=== PATIENT | female | born 1975 | race Two or more races ===

== ENCOUNTER 2022-11-11 14:43 | Outpatient (CLI) | payer BC, SELFPAY ==
[2022-11-11 21:51] LABS: Iron* 18 ug/dL (37-170)
[2022-11-11 22:00] LABS: Percent Iron Saturation 4 % (20-50); Total Iron Binding Capacity 504 ug/dL (265-497)
[2022-11-11 22:43] LABS: Ferritin* 3.9 ng/mL (6.24-137.0)
[2022-11-11 22:56] LABS: Vitamin B12* 628 pg/mL (243-894)
[2022-11-14 14:22] LABS: Folate, Serum 16.6 ng/mL (>=5.9)
== END 2022-11-11 14:44 | disposition home or self-care (01) ==
PROVIDERS: Visit Provider Family Medicine
DX: D64.9 Anemia, unspecified (principal); R63.4 Abnormal weight loss
CPT/HCPCS: 82607; 82728; 82746; 83540; 83550

== ENCOUNTER 2022-11-26 09:47 | Outpatient (CLI) | payer BC, SELFPAY ==
--- NOTE | 2022-11-26 11:00 | CRLHL7_ITS ---
For Patients: As a result of the Century Cures Act, medical imaging exams and procedure reports are released immediately into your electronic medical record. You may view this report before your referring provider. If you have questions, please contact your health care provider. Indication: ANEMIA, UNINTENDED WEIGHT LOSS Technique: Postcontrast CT chest, abdomen and pelvis. 75 cc Isovue 370 intravenous contrast. Please note that all CT scans at this facility use dose modulation, iterative reconstruction, and/or weight-based dosing when appropriate to reduce radiation dose to as low as reasonably achievable. Comparison: CT abdomen and pelvis 05/14/2013 Findings: In the chest, no enlarged mediastinal, hilar or axillary lymph nodes are present. Incidental 6 millimeter lymph node located within the left thoracic inlet. No suspicious thyroid nodule. Normal breast tissue. Degenerative joint disease at the acromioclavicular joints with joint space narrowing and spurring. No fracture is present. No suspicious osseous lesion. No infiltrate, edema, effusion or pneumothorax. No pulmonary nodule. In the abdomen, there is no suspicious intrahepatic mass. The gallbladder is absent. No biliary obstruction. The spleen is normal. No hiatal hernia. Pancreas within normal limits. Normal adrenal glands. The kidneys are normal. In the pelvis. The bladder is normal. The uterus is normal. Unremarkable ovaries. The appendix is within normal limits. No bowel obstruction or free air. No free fluid or abscess. No diverticulitis. No abdominal wall hernia. Incidental bone islands within the proximal right femur. Impression: Unremarkable CT of the chest, abdomen and pelvis. No evidence of malignancy or inflammation. No enlarged lymph nodes. Please note that all CT scans at this facility use dose modulation, iterative reconstruction, and/or weight-based dosing when appropriate to reduce radiation dose to as low as reasonably achievable. Dictated by Erlin Short MD @ 11/26/2022 1:03:38 PM (Electronically Signed)
== END 2022-11-26 09:48 | disposition home or self-care (01) ==
LOC: CT 09:47
PROVIDERS: PCP Family Medicine; Visit Provider Family Medicine
DX: D64.9 Anemia, unspecified (principal); R63.4 Abnormal weight loss
CPT/HCPCS: 71260; 74177; 80053; 82150; 84443; 86140; Q9967

== ENCOUNTER 2023-01-07 08:00 | Outpatient (CLI) | payer BC, SELFPAY | END 2023-01-07 08:01 | disposition home or self-care (01) | LOC: NFLDREF 12:08 | PROVIDERS: PCP Family Medicine; Referring Provider Family Medicine; Visit Provider Family Medicine | DX: D64.9 Anemia, unspecified (principal) | CPT/HCPCS: 82728 ==

== ENCOUNTER 2023-03-17 08:45 | Outpatient (RCR) | payer BC, SELFPAY | END 2023-07-15 23:59 | disposition home or self-care (01) | PROVIDERS: PCP Family Medicine; Visit Provider Family Medicine | DX: M77.01 Medial epicondylitis, right elbow (principal); M77.02 Medial epicondylitis, left elbow; M79.641 Pain in right hand; M79.642 Pain in left hand; M25.522 Pain in left elbow; M25.521 Pain in right elbow; Z51.89 Encounter for other specified aftercare | CPT/HCPCS: 97033; 97035; 97110; 97140; 97166; T1013; X5282 ==

== ENCOUNTER 2023-05-30 08:05 | Outpatient (CLI) | payer BC, SELFPAY | END 2023-05-30 08:06 | disposition home or self-care (01) | LOC: NFLDREF 06-02 18:38 | PROVIDERS: PCP Family Medicine; Referring Provider Family Medicine; Visit Provider Family Medicine | DX: D64.9 Anemia, unspecified (principal) | CPT/HCPCS: 82728 ==

== ENCOUNTER 2023-10-18 08:02 | Outpatient (CLI) | payer OTHER, SELFPAY ==
--- OUTSIDE RECORDS SUMMARY | 2023-10-18 08:10 | XMS_ITS | Clinical Summary ---
Author Name Unknown Organization [facility] Address [address] [place] [address] Care Team Providers Care Ornamental Ironworker Name Role Phone Needs Pcp, Assignment Primary Care Provider [phone] Source Comments You are receiving this document as you are listed as the primary care provider,follow-up provider, or the patient has been referred to you for consultation.This is in compliance with the Medicare and[facility] EHR Incentive Program,which states Providers who transition their patient to another setting of careor provider of care or refers their patient to another provider of care shouldprovide summary care record for each transition of care or referral. [facility] Allergies No known active allergies Medications Medication Sig Dispensed Refills Start Date End Date Status levocetirizine (XYZAL) 5 MG tablet Take 1 Tab by mouth two times a day. 60 Tab 11 06/07/2017 Active Additional Information Patient not taking.Reported on 12/06/2018 diclofenac (VOLTAREN) 1 % gelIndications:Fing er pain, left Apply 2 g to skin three times a day as needed. Apply to fingers. 100 g 0 08/27/2020 Active fluticasone propionate (FLONASE) 50 MCG/ACT nasal solutionIndications :Chronic rhinitis Place 2 Sprays into both nostrils daily. 16 g 11 08/27/2020 Active montelukast (SINGULAIR) 10 MG tabletIndications:U rticaria, chronic Take 1 Tablet by mouth every evening. 30 Tablet 11 08/27/2020 Active levocetirizine (XYZAL) 5 MG tabletIndications:U rticaria, chronic Take 1 Tablet by mouth every evening. 30 Tablet 11 08/27/2020 Active hydrOXYzine HCl (ATARAX) 50 MG tabletIndications:U rticaria, chronic Take 1 Tablet by mouth at bedtime as needed for Itching. 30 Tablet 1 08/27/2020 Active ferrous sulfate 325 (65 Fe) MG tabletIndications:A nemia, unspecified type Take 1 Tablet by mouth every other day. With meal. 90 Tablet 3 09/08/2020 Active Active Problems Problem Noted Date Diagnosed Date Urticaria, chronic 06/07/2017 Encounter for supervision of other normal pregna ncy 12/21/2005 Overview: LW Modifier: 13 WEEKS GESTATION LW Onset: ; Preg Normal Not 1st Preg Social History Tobacco Use Types Packs/Day Years Used Date Smoking Tobacco: Never Smokeless Tobacco: Never Alcohol Use Standard Drinks/Week Comments Never 0 (1 standard drink = 0.6 oz pur e alcohol) AUDIT-C Answer Date Recorded Q1: How often do you have a drink containing alc ohol? Never 08/27/2020 Average Number of Drinks Not on file 020 Frequency of Binge Drinking Not on file 08/10 PHQ-2 Answer Date Recorded PHQ-2 Score 0 08/27/2020 Sex and Gender Information Value Date Recorded Sex Assigned at Not on file Gender Identity Not on file Sexual Orientation Not on file Last Filed Vital Signs Vital Sign Reading Time Taken Comments Blood Pressure 123/77 08/27/2020 4:38 PM RECRUITING ADMINISTRATOR Pulse 81 08/27/2020 4:38 PM RECRUITING ADMINISTRATOR Temperature 36.4 ??C (97.6 ??F) 12/06/2018 1:34 PM CS T Respiratory Rate 16 12/06/2018 1:34 PM RECRUITING ADMINISTRATOR Oxygen Saturation 99% 12/06/2018 1:34 PM RECRUITING ADMINISTRATOR Inhaled Oxygen Concentration - - Weight 74.8 kg (165 lb) 09/17/2020 3:14 PM RECRUITING ADMINISTRATOR Height 152.4 cm (5') 09/17/2020 3:14 PM RECRUITING ADMINISTRATOR Body Mass Index 32.22 09/17/2020 3:14 PM RECRUITING ADMINISTRATOR Plan of Treatment Health Maintenance Due Date Last Done Comments Colon Cancer Screening Plan Due 1974 Hep C Screening (Preventive Services) 1974 HepB (1) 1974 COVID-19 Vaccine (#1) 06/19/1975 Adult Preventive Visit 08/27/2021 08/27/2020 Influenza (#1) 2023 07/02/2020, 07/10, 09/21/2010 Zoster/Shingles (1 of 2) 2024 Cervical Cancer Screening 08/27/20252019, 11/09/2005, 02/11/2004, Additional history exists Cholesterol 09/03/2025 09/03/2020 DTaP/Tdap/Td (4 - Tdap) 02/20/2029 02/21/20 19, 08/22/2018, 07/25/2018 HIV Screening (Preventive Services) Completed 11/09/2005, 06/06/2003 HepA Aged Out No longer eligi ble based on patient's age to complete this topic Hib Aged Out No longer eligi ble based on patient's age to complete this topic IPV (Polio) Aged Out No longer eligi ble based on patient's age to complete this topic MCV4 Aged Out No longer eligi ble based on patient's age to complete this topic Pneumococcal Aged Out No longer eligi ble based on patient's age to complete this topic Care Teams Ornamental Ironworker Relationship Specialty Start Date End Date Needs Pcp, Lia [place], [place] [id number] PCP - General 10/08/16
--- OUTSIDE RECORDS SUMMARY | 2023-10-18 08:10 | XMS_ITS ---
Author Name Unknown Organization [facility] Address [address] [place] [address] Care Team Providers Care Front End Developer Name Role Phone Unavailable Unavailable Unavailable Surgery Details Not on file Complications Check Surgery Details section. Procedure Estimated Blood Loss Check Surgery Details section. Procedure Findings Check Surgery Details section. Procedure Specimens Taken Check Surgery Details section.
--- OUTSIDE RECORDS SUMMARY | 2023-10-18 08:10 | XMS_ITS | Clinical Summary ---
Author Name Unknown Organization [facility] Address [place], [place] [address] Care Team Providers Care Senior Staff Consultant Name Role Phone Unavailable Primary Care Provider Unavailabl e Allergies No known active allergies Medications Medication Sig Dispensed Refills Start Date End Date Status clindamycin 1% (CLEOCIN-T) 1 % lotionIndications:Fol liculitis Apply to affected area of face twice daily as needed 1 Bottle 5 01/15/2015 Active ketotifen (ZADITOR) 0.025 % (0.035 %) ophthalmic solutionIndications:A llergic conjunctivitis, bilateral Place 1 Drop into the eye(s) 2 times daily. 1 Bottle 6 08/21/2015 Active Active Problems No known active problems Social History Tobacco Use Types Packs/Day Years Used Date Smoking Tobacco: Never Smokeless Tobacco: Never Tobacco Cessation:Counseling Given: Yes Alcohol Use Standard Drinks/Week Comments No 0 (1 standard drink = 0.6 oz pur e alcohol) Sex and Gender Information Value Date Recorded Sex Assigned at Not on file Gender Identity Not on file Sexual Orientation Not on file Obstetrics History Last Filed Vital Signs Vital Sign Reading Time Taken Comments Blood Pressure 116/74 08/22/2015 9:18 AM SKIN CARVER Pulse 67 08/22/2015 9:18 AM SKIN CARVER Temperature 36.7 ??C (98.1 ??F) 10/29/2014 8:29 AM CS T Respiratory Rate - - Oxygen Saturation 98% 10/29/2014 8:29 AM SKIN CARVER Inhaled Oxygen Concentration - - Weight 70.3 kg (155 lb) 10/29/2014 8:29 AM SKIN CARVER Height 155 cm (5' 1.02) 10/29/2014 8:29 AM SKIN CARVER Body Mass Index 29.26 10/29/2014 8:29 AM SKIN CARVER Plan of Treatment Health Maintenance Due Date Last Done Comments COVID-19 vaccine series (#1) 06/19/1975 Tdap 1985 Depression screening for age 12+ 1986 HIV for age 15-65 1989 BMI (ht and wt on same day) for age 18+ 1992 Hepatitis C screening for ag e 18-79 1992 Tetanus booster 1994 Pap test for age 21-65 12/18/1995 Colonoscopy through age 75 12/18/2019 Lipids for age 45-75 12/18/2019 Mammogram for age 45-75 12/18/2019 Influenza for age 9-49 06/10/2023 Pneumococcal series for age 6-64 Aged Out No longer eligible based on patient's age to complete this topic
--- OUTSIDE RECORDS SUMMARY | 2023-10-18 08:10 | XMS_ITS | Referral Summary ---
Author Name Unknown Organization [facility] Address [address] [place] [address] Care Team Providers Care Secretary Office Clerk Name Role Phone Unavailable Primary Care Provider Unavailabl e Source Comments Patient records contain information from all sites at [facility]. For routine questions regarding patient records, call [phone] during business hours, M-F 8:00 AM - 5:00 PM Central Time. Record requests for emergency care only can be directed to [phone] at any time.[facility] Allergies Active Allergy Reactions Criticality Noted Date Comments Shellfish Derived Other (see comments) High 02/09/20 22 Swelling and inflamation Medications Medication Sig Dispensed Refills Start Date End Date Status naproxen (NAPROSYN) 500 mg tablet 0 03/09/2022 Active Social History Tobacco Use Types Packs/Day Years Used Date Smoking Tobacco: Never Smokeless Tobacco: Never Tobacco Cessation:Counseling Given: Not Answered Nutrition Answer Date Recorded Nutrition: EVOO Fat Source Unknown 02/03 Nutrition: Servings of Fruits/Vegetables per Day Not on file 02/03/2022 Dental Answer Date Recorded Dental: Regular Dentist Unknown 02/04/20 22 Sex and Gender Information Value Date Recorded Sex Assigned at Not on file Gender Identity Not on file Sexual Orientation Not on file Last Filed Vital Signs Vital Sign Reading Time Taken Comments Blood Pressure 105/68 06/15/2022 1:30 PM CDT Pulse 79 06/15/2022 1:30 PM CDT Temperature - - Respiratory Rate - - Oxygen Saturation - - Inhaled Oxygen Concentration - - Weight 69.8 kg (153 lb 14.1 oz) 06/15/2022 1:30 PM CDT Height 154.9 cm (5' 0.98) 02/08/2022 2:33 PM CD T Body Mass Index 29.09 02/08/2022 2:33 PM CDT Plan of Treatment Not on file
--- OUTSIDE RECORDS SUMMARY | 2023-10-18 08:10 | XMS_ITS | Clinical Summary ---
Author Name Unknown Organization [facility] Address [address] [place] [address] Care Team Providers Care Professional Employer Consultant Name Role Phone Unavailable Primary Care Provider Unavailabl e Source Comments Patient records contain information from all sites at [facility]. For routine questions regarding patient records, call [phone] during business hours, M-F 8:00 AM - 5:00 PM Central Time. Record requests for emergency care only can be directed to [phone] at any time.[facility] Allergies Active Allergy Reactions Criticality Noted Date [...] 02/08/2022 2:33 PM CDT Plan of Treatment Health Maintenance Due Date Last Done Comments CT Colonography 1974 Cervical Cancer Screening 1974 Cologuard 1974 Colonoscopy 1974 Colorectal Cancer Screening 1974 FIT 1974 Fasting Glucose for Diabetes Screening 1974 HIV Screening 1974 Hepatitis B Vaccines (1 of 3 - 3-dose series) 1974 Hepatitis C Screening 1974 Lipid (Cholesterol) Screening 1974 Mammogram 1974 Depression Screening (Annual PHQ-2) 10/10/2022 COVID-19 Vaccine ( season) 2023 03/28/2021, 02/28/2021 Influenza Vaccine (#1) 2023 , 07/25/2018, 09/21/2010 DTaP,Tdap,and Td Vaccines (6 - Td or Tdap) 02/20/2029 02/20/2019, 02/20/2019, 08/22/2018, Additional history exists Pneumococcal vaccine (0-64 years) Aged Out No longer eligible based on patient's age to complete this topic
--- NOTE | 2023-10-18 08:15 | CRLHL7_ITS ---
For Patients: As a result of the Century Cures Act, medical imaging exams and procedure reports are released immediately into your electronic medical record. You may view this report before your referring provider. If you have questions, please contact your health care provider. BILATERAL SCREENING MAMMOGRAM WITH COMPUTER-AIDED DETECTION AND TOMOSYNTHESIS TECHNIQUE: CC and MLO views were obtained. These mammographic images have been obtained using full-field digital technique. These mammographic images were interpreted with the benefit of computer-aided detection. Breast Tomosynthesis was used in this interpretation. COMPARISON FILM: Baseline. FINDINGS: The breasts are heterogeneously dense, which may obscure small masses IMPRESSION: There is no radiographic evidence for malignancy. ASSESSMENT: BI-RADS Category 1: Negative RECOMMENDATION: Routine screening mammogram in 1 year. A lay language report of this examination will be provided to the patient. Abdoul Marte M.D. Diagnostic/Nuclear Medicine Radiologist [email or web address] JOE/Dictated by: Abdoul Marte MD @ 10/18/2023 10:18:00 AM (Electronically Signed)
== END 2023-10-18 08:03 | disposition home or self-care (01) ==
PROVIDERS: PCP Family Medicine; Visit Provider Family Medicine
DX: Z12.31 Encounter for screening mammogram for malignant neoplasm of breast (principal); R92.2 Inconclusive mammogram
CPT/HCPCS: 77063; 77067; T1013

== ENCOUNTER 2023-11-28 15:10 | Outpatient (REF) | payer OTHER, SELFPAY ==
--- OUTSIDE RECORDS SUMMARY | 2023-11-29 11:00 | XMS_ITS | Clinical Summary ---
Author Name Unknown Organization [facility] Address [address] [place] [address] Care Team Providers Care Splunk Dashboard Developer Name Role Phone Unavailable Primary Care Provider Unavailabl e Source Comments Patient records contain information from all sites at [facility]. For routine questions regarding patient records, call [phone] during business hours, M-F 8:00 AM - 5:00 PM Central Time. Record requests for emergency care only can be directed to [phone] at any time.[facility] Allergies Active Allergy Reactions Criticality Noted [...] 1974 Lipid (Cholesterol) Screening 1974 Mammogram 1974 COVID-19 Vaccine (3 season) 2023 03/28/2021, 02/28/2021 Influenza Vaccine (#1) 2023 , 07/25/2018, 09/21/2010 Depression Screening (Annual PHQ-2) 10/10/2023 DTaP,Tdap,and Td Vaccines (6 - Td or Tdap) 02/20/2029 02/20/2019, 02/20/2019, 08/22/2018, Additional history exists Pneumococcal vaccine (0-64 years) Aged Out No longer eligible based on patient's age to complete this topic
--- OUTSIDE RECORDS SUMMARY | 2023-11-29 11:00 | XMS_ITS | Clinical Summary ---
Author Name Unknown Organization [facility] Address [address] [place] [address] Care Team Providers Care Deputy Juvenile Officer Name Role Phone Needs Pcp, Assignment Primary Care Provider [phone] Source Comments You are receiving this document as you are listed as the primary care provider,follow-up provider, or the patient has been referred to you for consultation.This is in compliance with the Medicare and[facility] E[facility] Incentive [facility],which states Providers who transition their patient to another setting of careor provider of care or refers their patient to another provider of care shouldprovide summary care record for each transition of care or referral. [facility] Allergies No known active allergies Medications Medication [...] as needed. Apply to fingers. 100 g 08/27/2020 Active fluticasone propionate (FLONASE) 50 MCG/ACT [...] Comments Blood Pressure 123/77 08/27/2020 4:38 PM TRAFFIC WORKER Pulse 81 08/27/2020 4:38 PM TRAFFIC WORKER Temperature 36.4 ??C (97.6 ??F) 12/06/2018 1:34 PM CS T Respiratory Rate 16 12/06/2018 1:34 PM TRAFFIC WORKER Oxygen Saturation 99% 12/06/2018 1:34 PM TRAFFIC WORKER Inhaled Oxygen Concentration - - Weight 74.8 kg (165 lb) 09/17/2020 3:14 PM TRAFFIC WORKER Height 152.4 cm (5') 09/17/2020 3:14 PM TRAFFIC WORKER Body Mass Index 32.22 09/17/2020 3:14 PM TRAFFIC WORKER Plan of Treatment Health Maintenance Due Date Last Done Comments Colon Cancer Screening Plan Due 1974 Hep C Screening (Preventive Services) 1974 HepB (1) 1993 Adult Preventive Visit 08/27/2021 08/27/2020 COVID-19 Vaccine ( season) 2023 02/28/2021 Influenza (#1) 2023 07/02/2020, 07/10, 09/21/2010 Zoster/Shingles [...] on patient's age to complete this topic Procedures Procedure Name Priority Date/Time Associated Diagnosis Comments LIPID PANEL & DIRECT LDL (IF NEEDED) Routine 09/03/2020 11:07 AM TRAFFIC WORKER Well adult exam PAP TEST Routine 08/27/2020 5:24 PM TRAFFIC WORKER Screening for malignant neoplasm of cervix HIV ANTIBODY Routine 11/09/2005 12:00 PM TRAFFIC WORKER from Last 3 Months or Most Recently Relevant to Health Maintenance Results * (ABNORMAL) Lipid Panel - LDLD If Trig High (09/03/2020 11:07 AM TRAFFIC WORKER) Cholesterol 151 0 - 199 mg/dL 09/03/2020 12:21 PM [facility] Triglyceride 110 <=149 mg/dL 09/03/2020 12:21 PM [facility] HDL Cholesterol 35(L) >=40 mg/dL 0 12:21 PM [facility] LDL, Calculated 94 <130 mg/dL 0 12:21 PM [facility] Non HDL Chol, Calculated 116 mg/dL 09/03/2020 12:21 PM [facility] Cholesterol/HDL Ratio 4.3 09/03/2020 12:21 PM TRAFFIC WORKER [facility] Hours Fasting 12 09/03/2020 12:21 PM TRAFFIC WORKER [facility] Blood Venipuncture / Unknown 09/03/2020 11:07 AM TRAFFIC WORKER 09/03/2020 11:07 AM TRAFFIC WORKER Andrea Moore MD LAB_1 [facility] [address] [place] [address], [facility] [phone] * PAP Test (08/27/2020 5:24 PM TRAFFIC WORKER) Case Report Pap ? Case: [id number] ? Authorizing Provider: ??Andrea Moore MD ?Collected: ? 08/27/2020 1724 ? Ordering Location: ? [facility] Received: ?08/27/2020 1725 ? First Screen: ?Sil Araujo ? Specimen: ?Pap Test, Routine, Cervix/Endocervix ? 09/08/2020 2:39 PM TRAFFIC WORKER [facility] Pap Specimen Adequacy Satisfactory for evaluation, endocervical/watson sformation zone component present. 09/08/2020 2:39 PM TRAFFIC WORKER [facility] Pap Interpretation Negative for intraepithelial lesion or malignancy (NILM). 09/08/2020 2:39 PM TRAFFIC WORKER [facility] Pap Disclaimer The Pap test is a screening test designed to aid in the detection of cervical cancer and its precursor lesions. It is not a diagnostic procedure and should not be used as the sole means of detecting cervical cancer. Both false-positive and false-negative results may occur. 09/08/2020 2:39 PM TRAFFIC WORKER [facility] Gross Description The specimen is received in SurePath fixative and properly labeled. 1 Pap-stained SurePath slide is prepared. 09/08/2020 2:39 PM TRAFFIC WORKER [facility] Embedded Images 0 2:39 PM TRAFFIC WORKER [facility] Other Specimen Type ENTIRE ENDOCERVIX / Unknown 08/27/2020 5:24 PM TRAFFIC WORKER 08/27/2020 5:25 PM TRAFFIC WORKER Comment:LMP: Patient's last menstrual period was 08/22/2020. Andrea Moore MD LAB PATHOLOGY [facility] [address] * HIV Antibody (11/09/2005 12:00 PM TRAFFIC WORKER) HIV 1/HIV 2 Non Reac Non Reac HP CONVERSION 11/09/2005 12:0 0 PM TRAFFIC WORKER Violeta Burch APRN, AUTOMATIC DISPENSER MECHANIC LAB_1 HP CONVERSION from Last 3 Months or Most Recently Relevant to Health Maintenance Care Teams Deputy Juvenile Officer Relationship Specialty Start Date End Date Needs Pcp, [place] [address] PCP - General 10/08/16
--- OUTSIDE RECORDS SUMMARY | 2023-11-29 11:00 | XMS_ITS | Referral Summary ---
Author Name Unknown Organization [facility] Address [address] [place] [address] Care Team Providers Care Videotape Sales Representative Name Role Phone Unavailable Primary Care Provider Unavailabl e Source Comments Patient records contain information from all sites at [facility]. For routine questions regarding patient records, call [phone] during business hours, M-F 8:00 AM - 5:00 PM Central Time. Record requests for emergency care only can be directed to [phone] at any time.[facility] Allergies Active Allergy Reactions Criticality Noted Date [...]
--- OUTSIDE RECORDS SUMMARY | 2023-11-29 11:00 | XMS_ITS | Clinical Summary ---
Author Name Unknown Organization [facility] Address [place], [place] [address] Care Team Providers Care Tree And Shrub Worker Name Role Phone Unavailable Primary Care Provider [...] Comments Blood Pressure 116/74 08/22/2015 9:18 AM POWDER BLENDER AND POURER Pulse 67 08/22/2015 9:18 AM POWDER BLENDER AND POURER Temperature 36.7 ??C (98.1 ??F) 10/29/2014 8:29 AM CS T Respiratory Rate - - Oxygen Saturation 98% 10/29/2014 8:29 AM POWDER BLENDER AND POURER Inhaled Oxygen Concentration - - Weight 70.3 kg (155 lb) 10/29/2014 8:29 AM POWDER BLENDER AND POURER Height 155 cm (5' 1.02) 10/29/2014 8:29 AM POWDER BLENDER AND POURER Body Mass Index 29.26 10/29/2014 8:29 AM POWDER BLENDER AND POURER Plan of Treatment Health Maintenance Due Date [...]
--- OUTSIDE RECORDS SUMMARY | 2023-11-29 11:00 | XMS_ITS ---
Author Name Unknown Organization [facility] Address [address] [place] [address] Care Team Providers Care Ceramic Tile Installation Helper Name Role Phone Unavailable Unavailable Unavailable Surgery Details Not on file Complications Check Surgery Details section. Procedure Estimated Blood Loss Check Surgery Details section. Procedure Findings Check Surgery Details section. Procedure Specimens Taken Check Surgery Details section.
== END 2023-11-28 15:11 | disposition home or self-care (01) ==
LOC: NFLDREF 15:10
PROVIDERS: PCP Family Medicine; Referring Provider Family Medicine; Visit Provider Family Medicine
DX: D64.9 Anemia, unspecified (principal); Z13.220 Encounter for screening for lipoid disorders; Z13.1 Encounter for screening for diabetes mellitus
CPT/HCPCS: 80061; 82728; 82947

== ENCOUNTER 2023-12-30 09:26 | Outpatient (RCR) | payer OTHER, SELFPAY ==
--- NOTE | 2023-12-16 11:55 | URNOTE ---
Request received for authorization for?Iron Dextran (Infed) ([id number]). Prior authorization is not required per [facility] coverage, Rep. Siena Pace (Ref#[id number]).
[2023-12-30 09:33] VITALS: BP 125/79; PULSE 80; RESP 16; TEMP 36.4; O2SAT 98
[2023-12-30] MEDS: IRON DEXTRAN COMPLEX 25 MG in 0.9 % SODIUM CHLORIDE 100 ml 100 ML 402 MG IVPB (10:27)
[2023-12-30] MEDS: IRON DEXTRAN COMPLEX 975 MG in 0.9 % SODIUM CHLORIDE 250 ml 250 ML 269.5 MG IVPB (11:46)
[2023-12-30 13:02] VITALS: BP 112/63; PULSE 78; RESP 16; TEMP 36.9
[2023-12-30 13:35] VITALS: BP 124/59; PULSE 73; RESP 18; TEMP 36.9; O2SAT 99
== END 2024-06-27 23:59 | disposition home or self-care (01) ==
LOC: CCIC 09:26
PROVIDERS: PCP Family Medicine; Visit Provider Clinical Nurse Specialist
DX: D50.9 Iron deficiency anemia, unspecified (principal)
CPT/HCPCS: 96365; 96376; T1013; J1750; J7050

== ENCOUNTER 2024-01-27 11:30 | Outpatient (CLI) | payer OTHER, SELFPAY ==
--- OUTSIDE RECORDS SUMMARY | 2024-02-13 07:05 | XMS_ITS | Clinical Summary ---
Author Name Unknown Organization [facility] Address [place], [place] [address] Care Team Providers Care Trust Evaluation Supervisor Name Role Phone Unavailable Primary Care Provider [...] Comments Blood Pressure 116/74 08/22/2015 9:18 AM WORD PROCESSING SPECIALIST Pulse 67 08/22/2015 9:18 AM WORD PROCESSING SPECIALIST Temperature 36.7 ??C (98.1 ??F) 10/29/2014 8:29 AM CS T Respiratory Rate - - Oxygen Saturation 98% 10/29/2014 8:29 AM WORD PROCESSING SPECIALIST Inhaled Oxygen Concentration - - Weight 70.3 kg (155 lb) 10/29/2014 8:29 AM WORD PROCESSING SPECIALIST Height 155 cm (5' 1.02) 10/29/2014 8:29 AM WORD PROCESSING SPECIALIST Body Mass Index 29.26 10/29/2014 8:29 AM WORD PROCESSING SPECIALIST Plan of Treatment Health Maintenance Due Date Last Done Comments Tdap 1985 Depression screening for age 12+ 1986 HIV for age 15-65 1989 BMI (ht and wt on same day) for age 18+ 1992 Hepatitis C screening for ag e 18-79 1992 Tetanus booster 1994 Pap test for age 21-65 12/18/1995 Colonoscopy through age 75 12/18/2019 Lipids for age 45-75 12/18/2019 Mammogram for age 45-75 12/18/2019 COVID-19 vaccine series (2022-24 season) 2023 Influenza for age 9-49 06/10/2024 Pneumococcal series for age 6-64 Aged Out No longer eligible based on patient's age to complete this topic
--- OUTSIDE RECORDS SUMMARY | 2024-02-13 07:05 | XMS_ITS | Clinical Summary ---
Author Name Unknown Organization [facility] Address [address] [place] [address] Care Team Providers Care Identity Management Developer Name Role Phone Needs Pcp, Assignment Primary Care Provider +1 [phone] Source Comments You are receiving this document as you are listed as the primary care provider,follow-up provider, or the patient has been referred to you for consultation.This is in compliance with the Medicare and[facility] EHR Incentive [facility],which states Providers who transition their patient to another setting of careor provider of care or refers their patient to another provider of care shouldprovide summary care record for each transition of care or referral. [facility] Allergies No known active allergies Medications Medication [...] Comments Blood Pressure 123/77 08/27/2020 4:38 PM INFORMATION TECHNOLOGY PROGRAM MANAGER Pulse 81 08/27/2020 4:38 PM INFORMATION TECHNOLOGY PROGRAM MANAGER Temperature 36.4 ??C (97.6 ??F) 12/06/2018 1:34 PM CS T Respiratory Rate 16 12/06/2018 1:34 PM INFORMATION TECHNOLOGY PROGRAM MANAGER Oxygen Saturation 99% 12/06/2018 1:34 PM INFORMATION TECHNOLOGY PROGRAM MANAGER Inhaled Oxygen Concentration - - Weight 74.8 kg (165 lb) 09/17/2020 3:14 PM INFORMATION TECHNOLOGY PROGRAM MANAGER Height 152.4 cm (5') 09/17/2020 3:14 PM INFORMATION TECHNOLOGY PROGRAM MANAGER Body Mass Index 32.22 09/17/2020 3:14 PM INFORMATION TECHNOLOGY PROGRAM MANAGER Plan of Treatment Health Maintenance Due Date Last Done Comments Colon Cancer Screening Plan Due 1975 Hep C Screening (Preventive Services) 1974 HepB (1) 1993 Adult Preventive Visit 08/27/2021 08/27/2020 COVID-19 Vaccine ( season) 2023 02/28/2021 Influenza (Season Ended) 2024 020, 07/25/2018, 09/21/2010 Zoster/Shingles (1 of 2) 2024 Cervical [...] LDL (IF NEEDED) Routine 09/03/2020 11:07 AM INFORMATION TECHNOLOGY PROGRAM MANAGER Well adult exam PAP TEST Routine 08/27/2020 5:24 PM INFORMATION TECHNOLOGY PROGRAM MANAGER Screening for malignant neoplasm of cervix HIV ANTIBODY Routine 11/09/2005 12:00 PM INFORMATION TECHNOLOGY PROGRAM MANAGER from Last 3 Months or Most Recently Relevant to Health Maintenance Results * (ABNORMAL) Lipid Panel - LDLD If Trig High (09/03/2020 11:07 AM INFORMATION TECHNOLOGY PROGRAM MANAGER) Cholesterol 151 0 - 199 mg/dL 09/03/2020 12:21 PM [facility] Triglyceride 110 <=149 mg/dL 09/03/2020 12:21 PM [facility] HDL Cholesterol 35(L) >=40 mg/dL 0 12:21 PM [facility] LDL, Calculated 94 <130 mg/dL 0 12:21 PM [facility] Non HDL Chol, Calculated 116 mg/dL 09/03/2020 12:21 PM [facility] Cholesterol/HDL Ratio 4.3 09/03/2020 12:21 PM INFORMATION TECHNOLOGY PROGRAM MANAGER [facility] Hours Fasting 12 09/03/2020 12:21 PM INFORMATION TECHNOLOGY PROGRAM MANAGER [facility] Blood Venipuncture / Unknown 09/03/2020 11:07 AM INFORMATION TECHNOLOGY PROGRAM MANAGER 09/03/2020 11:07 AM INFORMATION TECHNOLOGY PROGRAM MANAGER Andrea Moore MD LAB_1 [facility] [address] [place] [address], [facility] [phone] * PAP Test (08/27/2020 5:24 PM INFORMATION TECHNOLOGY PROGRAM MANAGER) Case Report Pap ? Case: [id number] ? Authorizing Provider: ??Andrea Moore MD ?Collected: ? 08/27/2020 1724 ? Ordering Location: ? [facility] Received: ?08/27/2020 1725 ? First Screen: ?Sil Araujo ? Specimen: ?Pap Test, Routine, Cervix/Endocervix ? 09/08/2020 2:39 PM INFORMATION TECHNOLOGY PROGRAM MANAGER [facility] Pap Specimen Adequacy Satisfactory for evaluation, endocervical/watson sformation zone component present. 09/08/2020 2:39 PM INFORMATION TECHNOLOGY PROGRAM MANAGER [facility] Pap Interpretation Negative for intraepithelial lesion or malignancy (NILM). 09/08/2020 2:39 PM INFORMATION TECHNOLOGY PROGRAM MANAGER [facility] Pap Disclaimer The Pap test is a screening test designed to aid in the detection of cervical cancer and its precursor lesions. It is not a diagnostic procedure and should not be used as the sole means of detecting cervical cancer. Both false-positive and false-negative results may occur. 09/08/2020 2:39 PM INFORMATION TECHNOLOGY PROGRAM MANAGER [facility] Gross Description The specimen is received in SurePath fixative and properly labeled. 1 Pap-stained SurePath slide is prepared. 09/08/2020 2:39 PM INFORMATION TECHNOLOGY PROGRAM MANAGER [facility] Embedded Images 0 2:39 PM INFORMATION TECHNOLOGY PROGRAM MANAGER [facility] Other Specimen Type ENTIRE ENDOCERVIX / Unknown 08/27/2020 5:24 PM INFORMATION TECHNOLOGY PROGRAM MANAGER 08/27/2020 5:25 PM INFORMATION TECHNOLOGY PROGRAM MANAGER Comment:LMP: Patient's last menstrual period was 08/22/2020. Andrea Moore MD LAB PATHOLOGY [facility] [address] * HIV Antibody (11/09/2005 12:00 PM INFORMATION TECHNOLOGY PROGRAM MANAGER) HIV 1/HIV 2 Non Reac Non Reac HP CONVERSION 11/09/2005 12:0 0 PM INFORMATION TECHNOLOGY PROGRAM MANAGER Violeta Burch APRN, STUDENT RECORDS COORDINATOR LAB_1 HP CONVERSION from Last 3 Months or Most Recently Relevant to Health Maintenance Care Teams Identity Management Developer Relationship Specialty Start Date End Date Needs Pcp, [place] [address] PCP - General 10/08/16
== END 2024-01-27 11:31 | disposition home or self-care (01) ==
LOC: NFLDREF 02-13 07:04
PROVIDERS: PCP Family Medicine; Referring Provider Family Medicine; Visit Provider Family Medicine
DX: D64.9 Anemia, unspecified (principal)
CPT/HCPCS: 82728

== ENCOUNTER 2024-04-20 11:37 | Emergency (ER) | payer OTHER, SELFPAY ==
[2024-04-20 11:53] VITALS: BP 115/70; PULSE 79; RESP 18; TEMP 36.4; O2SAT 96; BMI 33.2
--- NOTE | 2024-04-20 11:58 | CRLHL7_ITS ---
For Patients: As a result of the Cures Act, medical imaging exams and procedure reports are released immediately into your electronic medical record. You may view this report before your referring provider. If you have questions, please contact your health care provider. INDICATION: Left-sided abdominal pain. TECHNIQUE: CT abdomen and pelvis acquired with 86 cc of Isovue 370 IV contrast. COMPARISON: None. FINDINGS: Lower chest: Unremarkable. Liver: Fatty change. Spleen: Unremarkable. Pancreas: Unremarkable. Gallbladder and bile ducts: Cholecystectomy. No biliary ductal dilatation. Kidneys: Unremarkable. No hydronephrosis. Adrenal glands: Unremarkable. GI tract: No obstruction or focal inflammatory changes. Normal appendix. Small fat containing umbilical hernia. No free air or free fluid. Lymph nodes: No pathologic lymphadenopathy. Vascular structures: Unremarkable. Pelvic Organs: Unremarkable. Bones: No acute or suspicious osseous abnormality. IMPRESSION: No acute intra-abdominal or pelvic abnormality. Dictated by Chacho Lux MD @ 04/20/2024 1:48:11 PM Please note that all CT scans at this facility use dose modulation, iterative reconstruction, and/or weight-based dosing when appropriate to reduce radiation dose to as low as reasonably achievable. Dictated by: Chacho Lux MD @ 04/20/2024 13:48:48 (Electronically Signed)
--- NOTE | 2024-04-20 12:38 | ED_ITS ---
HPI - Abdominal Pain General Time Seen by Provider: 12:38 Date Seen: 04/20/24 Chief Complaint: Abdominal Pain Stated Complaint: Stomach pain - labs done at clinic Time Seen by Provider: 04/20/24 11:56 Source: patient, RN notes reviewed and old records reviewed Mode of arrival: ambulatory Limitations: no limitations History of Present Illness HPI narrative: This 48yo female was referred from by Lexii Doherty with concern of abdominal pain and needing a CT. She did call and agreed with her assessment that the patient should have CT imaging. Patient is having increasing abdominal pain, bloating, yellow diarrhea with low-grade fevers. This started Tuesday night after eating out. She has no other family members that are ill including people that went to dinner with her. Her colonoscopy is up-to-date in 2022, was normal. She has had a tubal ligation and cholecystectomy. She feels she has diminished oral intake due to her discomfort, nausea and anorexia. The pain is primarily on the left side of the abdomen encompassing the upper and lower quadrants. No bloody diarrhea. Decreased oral intake due to the abdominal pain. She does have some nausea right now, has pain. Her white blood count was minimally elevated in clinic at 11,550 with left shift. Her Chem 8 was reportedly normal. Urinalysis was unremarkable per report. Patient stated that her stomach felt ?twisted?. MD elicited complaint: abdominal pain Related Data Hx Last Menstrual Period: Status post tubal ligation Patient : No Previous Rx's ?Medication ?Instructions ?Recorded terbinafine HCl 250 mg tablet 250 mg PO QDAY #84 tabs 11/30/23 Allergies Allergy/AdvReac Type Severity Reaction Status Date / Time shellfish derived Allergy Severe Swelling Verified 04/20/24 10:31 of Lip/Tongue/Throat [facility] Medical History Abdominal pain ?R10.9 - Unspecified abdominal pain (ICD-10) Weight loss ?R63.4 - Abnormal weight loss (ICD-10) Surgical History History of tubal ligation ?Z98.51 - Tubal ligation status (ICD-10) History of cholecystectomy ?Z90.49 - Acquired absence of other specified parts of digestive tract (ICD- 10) Social History What is your current living situation?: I presently have a place to live Problems where you live: no known problems In the past 12 months, utilities in danger of being shut off: no In past 12 months, lack of transportation kept you from medical appts, meetings, work, or getting things needed for daily living: no In the past 12 mos, have been you worried that your food would run out before you had money to buy more?: never true In the past 12 mos, the food you bought just didn't last and you didn't have money to buy more?: never true Smoking Status: Never smoker How often does anyone, including family, friends and others, physically hurt you : never How often does anyone, including family, friends and others, insult or talk down to you: never How often does anyone, including family, friends and others, threaten you with harm: never How often does anyone, including family, friends and others, scream or curse at you: never Little interest or pleasure in doing things: not at all Feeling down, depressed, or hopeless: not at all Exam Const: Vital Signs, click to edit/add: Vital Signs - 24 hr 04/20/24 11:53 Temperature 97.5 F L Pulse Rate [Pulse Oximeter] 79 Respiratory Rate 18 Blood Pressure [Ri ght Upper Arm] 115/70 Pulse Oximetry 96 Oxygen Delivery Me thod Room Air This 48-year-old female is alert, interactive, standing in the room when I come into exam room floor. She states sitting abdomen certainly does look bloated. Pupils equal round reactive, sclera clear, able speak in complete sentences. Lungs are clear, good air entry, no wheezing or crackles. CV regular rate and rhythm no murmur, normal S1-S2, no S3-S4. Abdomen indeed does seem bloated, has mild diffuse tenderness but certainly localizes to the left side left mid to left lower quadrant of her abdomen. I do not have a since it she has rebound or guarding. Bowel sounds are somewhat distant but are present. No definitive masses noted. Documenting provider has reviewed patient's vital signs: yes Course Course ED Course: This patient will have an IV placed, will also get a lactate, some other labs not done in clinic. Colitis is certainly a possibility, possibly diverticulitis. CT imaging will certainly help elucidate any acute intra- abdominal pathology. Will give this patient some IV Toradol, Zofran and IV fluids for symptom control. She is currently afebrile on presentation and hemodynamically stable. Reevaluation(s) Time of Reevaluation #1: 14:05 Reevaluation #1: Reviewed with patient her CT imaging, there is no acute pathology identified. Her other labs are reassuring. We discussed viral gastroenteritis. We will send her handout for nutrition tips with diarrhea. I personally do not recommend antidiarrheals in the acute phase of illness, would recommend conservative management for few more days, re-evaluate if not improving by that point. We discussed if she were worsening or having prolong symptoms, further evaluation may include stool studies. At this time, would recommend observation. Vital Signs Vital signs: Initial Vital Signs Temperature 97.5 F L 04/20/24 11:53 Temperature Source Temporal Artery Scan 04/20/24 11:53 Pulse Rate 79 04/20/24 11:53 Respiratory Rate 18 04/20/24 11:53 Blood Pressure 115/70 04/20/24 11:53 Blood Pressure Mean 85 04/20/24 11:53 Blood Pressure Position Sitting 04/20/24 11:53 Pulse Oximetry 96 04/20/24 11:53 Oxygen Delivery Method Room Air 04/20/24 11:53 Vital Signs Temperature 97.5 F L 04/20/24 11:53 Pulse Rate 79 04/20/24 11:53 Respiratory Rate 18 04/20/24 11:53 Blood Pressure 115/70 04/20/24 11:53 Pulse Oximetry 96 04/20/24 11:53 Oxygen Delivery Method Room Air 04/20/24 11:53 Temperature 97.5 F L 04/20/24 11:53 Pulse Rate 79 04/20/24 11:53 Respiratory Rate 18 04/20/24 11:53 Blood Pressure 115/70 04/20/24 11:53 Pulse Oximetry 96 04/20/24 11:53 Oxygen Delivery Method Room Air 04/20/24 11:53 Medications Administered Medications: Discontinued Medications Generic Name Dose Route Start Last Admin Trade Name Freq PRN Reason Stop Dose Admin Sodium Chloride 1,000 mls @ 1,000 mls/hr 04/20/24 12:41 04/20/24 13:15 0.9 % Sodium Chloride 1000 Ml IV 04/20/24 13:40 1,000 mls/hr .Q1H KRISTY Administration Ketorolac Tromethamine 15 mg 04/20/24 12:44 04/20/24 13:05 Ketorolac 15 Mg/Ml Inj IVP 04/20/24 12:45 15 mg ONCE ONE Administration Ondansetron HCl 4 mg 04/20/24 12:44 04/20/24 13:10 Ondansetron 2 Mg/Ml Inj IVP 04/20/24 12:45 4 mg ONCE ONE Administration MDM - Abdominal Pain Lab Data Attestation: I reviewed the patient's lab results. Labs: Lab Results 04/20/24 Range/Units 13:00 Lactate 1.0 (0.5-1.9) mmol/L Total Bilirubin 0.4 (0.1-1.5) mg/dL Direct Bilirubin 0.3 (0.0-0.5) mg/dL AST 40 H (12-35) U/L ALT 39 H (4-35) U/L Alkaline Phosphatase 121 (40-150) U/L C-Reactive Protein 1.3 H (0.5-1.0) mg/dL Total Protein 7.4 (6.0-8.3) g/dL Albumin 4.4 (3.3-5.0) g/dL Lipase 54 (23-300) U/L Imaging Data CT scan - abdomen: Attestation: I have reviewed the pertinent imaging results. Radiologist's impression: Patient: TARAS STERLING Facility:?[facility] Patient ID:?[id number] Site Patient ID:?[id number]. Site :?[id number] Study:?CT-Abdomen/Pelvis W/ 86CC [id number]/12/2024 1:25:33 PM Ordering Physician:Ana Eli Final Report: INDICATION: Left-sided abdominal pain. TECHNIQUE: CT abdomen and pelvis acquired with 86 cc of Isovue 370 IV contrast. COMPARISON: None. FINDINGS: Lower chest: Unremarkable. Liver: Fatty change. Spleen: Unremarkable. Pancreas: Unremarkable. Gallbladder and bile ducts: Cholecystectomy. No biliary ductal dilatation. Kidneys: Unremarkable. No hydronephrosis. Adrenal glands: Unremarkable. GI tract: No obstruction or focal inflammatory changes. Normal appendix. Small fat containing umbilical hernia. No free air or free fluid. Lymph nodes: No pathologic lymphadenopathy. Vascular structures: Unremarkable. Pelvic Organs: Unremarkable. Bones: No acute or suspicious osseous abnormality. IMPRESSION: No acute intra-abdominal or pelvic abnormality. Dictated by Chacho Lux MD @ 04/20/2024 1:48:11 PM Please note that all CT scans at this facility use dose modulation, iterative reconstruction, and/or weight-based dosing when appropriate to reduce radiation dose to as low as reasonably achievable. Dictated by: Chacho Lux MD @ 04/20/2024 13:48:48 (Electronic Signature) Discharge Plan Discharge Clinical Impression: Diarrhea Qualifiers: Diarrhea type: presumed infectious Qualified Code(s): R19.7 - Diarrhea, unspecified Patient Disposition: Home, Self-Care Condition: Stable Instructions: Acute Diarrhea (ED), Nutrition Tips for Relief of Diarrhea (ED) Additional Instructions: Recommend frequent sips of clear liquids to stay hydrated. Follow the handout for recommended foods while you have diarrhea. Can try a heating pad, warm baths or shower to help with abdominal discomfort. Fine to try Tylenol and ibuprofen per bottle directions as needed. If you are not improving over the next couple days, feel you are worsening in any point, do recommend re- evaluation. Prescriptions: No Action terbinafine HCl 250 mg tablet 250 mg PO QDAY Qty: 84 0RF Follow Up/Referrals: Star Tsang MD [Primary Care Provider] - Stand Alone Forms: [employer] Info Instructions
[2024-04-20] MEDS: KETOROLAC 15 MG/ML inj IVP (13:05)
[2024-04-20] MEDS: ONDANSETRON 2 MG/ML inj 4 MG IVP (13:10)
[2024-04-20] MEDS: 0.9 % SODIUM CHLORIDE 1000 ml 1,000 ML IV (13:15)
[2024-04-20 13:43] LABS: Albumin* 4.4 g/dL (3.3-5.0)
[2024-04-20 13:45] LABS: Bilirubin Direct* 0.3 mg/dL (0.0-0.5); Bilirubin Total* 0.4 mg/dL (0.1-1.5)
[2024-04-20 13:46] LABS: Alkaline Phosphatase* 121 U/L (40-150); Aspartate Amino Transferase* 40 U/L (12-35); Lipase* 54 U/L (23-300); Total Protein* 7.4 g/dL (6.0-8.3)
[2024-04-20 13:47] LABS: Alanine Aminotransferase* 39 U/L (4-35)
[2024-04-20 13:49] LABS: C Reactive Protein* 1.3 mg/dL (0.5-1.0)
--- OUTSIDE RECORDS SUMMARY | 2024-04-20 14:27 | XMS_ITS | Clinical Summary ---
Author Organization [facility] Address [place], [place] [address] Care Team Providers Care Voice Instructor Name Role Phone Unavailable Primary Care Provider [...] Comments Blood Pressure 116/74 08/22/2015 9:18 AM RECYCLER FORKLIFT DRIVER TRUCK DRIVER Pulse 67 08/22/2015 9:18 AM RECYCLER FORKLIFT DRIVER TRUCK DRIVER Temperature 36.7 ??C (98.1 ??F) 10/29/2014 8:29 AM CS T Respiratory Rate - - Oxygen Saturation 98% 10/29/2014 8:29 AM RECYCLER FORKLIFT DRIVER TRUCK DRIVER Inhaled Oxygen Concentration - - Weight 70.3 kg (155 lb) 10/29/2014 8:29 AM RECYCLER FORKLIFT DRIVER TRUCK DRIVER Height 155 cm (5' 1.02) 10/29/2014 8:29 AM RECYCLER FORKLIFT DRIVER TRUCK DRIVER Body Mass Index 29.26 10/29/2014 8:29 AM RECYCLER FORKLIFT DRIVER TRUCK DRIVER Plan of Treatment Health Maintenance Due Date [...]
--- OUTSIDE RECORDS SUMMARY | 2024-04-20 14:27 | XMS_ITS | Clinical Summary ---
Author Organization [facility] Address [address] [place] [address] Care Team Providers Care Graduate Nurse Name Role Phone Needs Pcp, Assignment Primary Care Provider [phone] [phone] Source Comments You are receiving this document as you are listed as the primary care provider,follow-up provider, or the patient has been referred to you for consultation.This is in compliance with the Medicare and[facility],which states Providers who transition their patient to another setting of careor provider of care or refers their patient to another provider of care shouldprovide summary care record for each transition of care or referral. [facility] Allergies No known active allergies Medications Medication [...] LW Modifier: 13 WEEKS GESTATION LW Onset: [id number] ; Preg Normal Not 1st Preg Social [...] Comments Blood Pressure 123/77 08/27/2020 4:38 PM FRONT DESK CLERK Pulse 81 08/27/2020 4:38 PM FRONT DESK CLERK Temperature 36.4 ??C (97.6 ??F) 12/06/2018 1:34 PM CS T Respiratory Rate 16 12/06/2018 1:34 PM FRONT DESK CLERK Oxygen Saturation 99% 12/06/2018 1:34 PM FRONT DESK CLERK Inhaled Oxygen Concentration - - Weight 74.8 kg (165 lb) 09/17/2020 3:14 PM FRONT DESK CLERK Height 152.4 cm (5') 09/17/2020 3:14 PM FRONT DESK CLERK Body Mass Index 32.22 09/17/2020 3:14 PM FRONT DESK CLERK Plan of Treatment Health Maintenance Due Date Last Done Comments Colon Cancer Screening Plan Due 1975 Hep C Screening (Preventive Services) 1975 Mammogram 1975 HepB (1) 1993 Adult Preventive Visit 08/27/2021 08/27/2020 COVID-19 Vaccine ( season) 2023 02/28/2021 Influenza (#1) 2024 07/02/2020, 07/10, 09/21/2010 Zoster/Shingles (1 of 2) [...] LDL (IF NEEDED) Routine 09/03/2020 11:07 AM FRONT DESK CLERK Well adult exam PAP TEST Routine 08/27/2020 5:24 PM FRONT DESK CLERK Screening for malignant neoplasm of cervix HIV ANTIBODY Routine 11/09/2005 12:00 PM FRONT DESK CLERK from Last 3 Months or Most Recently Relevant to Health Maintenance Results * (ABNORMAL) Lipid Panel - LDLD If Trig High (09/03/2020 11:07 AM FRONT DESK CLERK) Cholesterol 151 0 - 199 mg/dL 09/03/2020 12:21 PM [facility] Triglyceride 110 <=149 mg/dL 09/03/2020 12:21 PM [facility] HDL Cholesterol 35(L) >=40 mg/dL 0 12:21 PM [facility] LDL, Calculated 94 <130 mg/dL 0 12:21 PM [facility] Non HDL Chol, Calculated 116 mg/dL 09/03/2020 12:21 PM [facility] Cholesterol/HDL Ratio 4.3 09/03/2020 12:21 PM FRONT DESK CLERK [facility] Hours Fasting 12 09/03/2020 12:21 PM FRONT DESK CLERK [facility] Blood Venipuncture / Unknown 09/03/2020 11:07 AM FRONT DESK CLERK 09/03/2020 11:07 AM FRONT DESK CLERK Andrea Moore MD LAB_1 [facility] [address] [place] [address], [facility] [phone] * PAP Test (08/27/2020 5:24 PM FRONT DESK CLERK) Case Report Pap ? Case: [id number] ? Authorizing Provider: ??Andrea Moore MD ?Collected: ? 08/27/2020 1724 ? Ordering Location: ? [facility] Received: ?08/27/2020 1725 ? First Screen: ?Sil Araujo ? Specimen: ?Pap Test, Routine, Cervix/Endocervix ? 09/08/2020 2:39 PM FRONT DESK CLERK [facility] Pap Specimen Adequacy Satisfactory for evaluation, endocervical/watson sformation zone component present. 09/08/2020 2:39 PM FRONT DESK CLERK [facility] Pap Interpretation Negative for intraepithelial lesion or malignancy (NILM). 09/08/2020 2:39 PM FRONT DESK CLERK [facility] Pap Disclaimer The Pap test is a screening test designed to aid in the detection of cervical cancer and its precursor lesions. It is not a diagnostic procedure and should not be used as the sole means of detecting cervical cancer. Both false-positive and false-negative results may occur. 09/08/2020 2:39 PM FRONT DESK CLERK [facility] Gross Description The specimen is received in SurePath fixative and properly labeled. 1 Pap-stained SurePath slide is prepared. 09/08/2020 2:39 PM FRONT DESK CLERK [facility] Embedded Images 0 2:39 PM FRONT DESK CLERK [facility] Other Specimen Type ENTIRE ENDOCERVIX / Unknown 08/27/2020 5:24 PM FRONT DESK CLERK 08/27/2020 5:25 PM FRONT DESK CLERK Comment:LMP: Patient's last menstrual period was 08/22/2020. Andrea Moore MD LAB PATHOLOGY [facility] [address] * HIV Antibody (11/09/2005 12:00 PM FRONT DESK CLERK) HIV 1/HIV 2 Non Reac Non Reac HP CONVERSION 11/09/2005 12:0 0 PM FRONT DESK CLERK Violeta Burch APRN, SOLAR SALES ASSESSOR LAB_1 HP CONVERSION from Last 3 Months or Most Recently Relevant to Health Maintenance Care Teams Graduate Nurse Relationship Specialty Start Date End Date Needs Pcp, [place] [address] PCP - General 10/08/16
== END 2024-04-20 14:38 | disposition home or self-care (01) ==
PROVIDERS: Emergency Provider Family Medicine; PCP Family Medicine
DX: R19.7 Diarrhea, unspecified (principal)
CPT/HCPCS: 36415; 74177; 80076; 83605; 83690; 86140; 96361; 96374; 99284; 99285; J1885; J2405; J7030; Q9967

== ENCOUNTER 2025-07-18 10:42 | Outpatient (CLI) | payer OTHER, SELFPAY | END 2025-07-18 10:43 | disposition home or self-care (01) | LOC: NFLDREF 23:04 | PROVIDERS: PCP Family Medicine; Referring Provider Family Medicine; Visit Provider Family Medicine | DX: R39.9 Unspecified symptoms and signs involving the genitourinary system (principal); R35.0 Frequency of micturition | CPT/HCPCS: 87086 ==

== ENCOUNTER 2025-07-26 08:34 | Outpatient (CLI) | payer OTHER, SELFPAY | END 2025-07-26 08:35 | disposition home or self-care (01) | LOC: NFLDREF 08-01 12:44 | PROVIDERS: PCP Family Medicine; Referring Provider Family Medicine; Visit Provider Family Medicine | DX: D64.9 Anemia, unspecified (principal); E78.5 Hyperlipidemia, unspecified | CPT/HCPCS: 80053; 80061 ==